=== PATIENT | male | born 1965 | race Caucasian/White ===

== ENCOUNTER 2018-03-14 21:19 | Emergency (ER) | payer OTHER, MEDICAID | END 2018-03-14 22:45 | disposition home or self-care (01) | LOC: M ED 22:45 | DX: S60.562A Insect bite (nonvenomous) of left hand, initial encounter (principal); T78.40XA Allergy, unspecified, initial encounter; R60.0 Localized edema; W57.XXXA Bitten or stung by nonvenomous insect and other nonvenomous arthropods, initial encounter; Y92.89 Other specified places as the place of occurrence of the external cause; I10 Essential (primary) hypertension; Z86.73 Personal history of transient ischemic attack (TIA), and cerebral infarction without residual deficits; Z86.19 Personal history of other infectious and parasitic diseases; Z79.899 Other long term (current) drug therapy; Z79.82 Long term (current) use of aspirin | CPT/HCPCS: 99283 ==

== ENCOUNTER 2020-09-07 08:45 | Emergency (ER) | payer OTHER ==
[~2020-09-07] VITALS: Ht 188 cm; Wt 134.7 kg
[~2020-09-07 08:45] MED LIST: ACET125T2 PO; AMLO25TA PO; ANTACHW5 PO; ASPI81TA24 PO; LABE20TAB GT; LIPI20TA PO; MECL1TAB31 PO; NAPR-885 PO; PLAV1TAB2 PO; TOPA1TAB PO; normodyne PO
[2020-09-07 09:42] LABS: BASO % 0.3 % (0.0-1.0); EOS % 0.2 % (0.0-3.0); HEMATOCRIT 46.3 % (42.0-52.0); HEMOGLOBIN 15.3 g/dl (13.5-17.5); LYMPH # 0.6 10^3/uL (1.5-5.0); LYMPH % 6.3 % (24.0-44.0); MEAN CORPUSCULAR HEMOGLOBIN 28.7 pg (27.0-33.0); MEAN CORPUSCULAR VOLUME 86.7 fl (80.0-96.0); MONO # 0.7 10^3/uL (0.0-0.8); MONO % 7.5 % (0.0-5.0); NEUTROPHILS # 7.8 10^3/uL (1.5-8.5); NEUTROPHILS % 85.4 % (36.0-66.0); PLATELET COUNT, AUTOMATED 156 10^3/uL (150-450); RED BLOOD COUNT 5.34 10^6/uL (4.30-6.10); WHITE BLOOD COUNT 9.2 10^3/uL (4.0-10.0)
[2020-09-07] MEDS ORDERED: NS 1,000 ML IV ONE (09:45)
[2020-09-07 09:58] LABS: ALT/SGPT 31 U/L (12-78); BILIRUBIN,DIRECT < 0.1 MG/DL (0.0-0.2); BILIRUBIN,TOTAL 0.4 MG/DL (0.2-1.0); LIPASE 130 U/L (73-393); TOTAL PROTEIN 7.4 GM/DL (6.4-8.2)
--- NOTE | 2020-09-07 10:05 | REP ---
INDICATION: l flank pain, hematuria, fmhx of stones COMPARISON: None. TECHNIQUE: Helical scanning is acquired in 4 mm axial images were reformatted. Coronal and sagittal MPR images were generated and reviewed. FINDINGS: Preliminary digital saddle and side wire stitcher radiograph shows minimal gaseous distention of the transverse colon, otherwise negative bowel gas pattern. The lung bases are clear on axial CT images. Vascular calcifications noted in the distribution of the left coronary artery. There are multiple small hepatic cysts. The largest of these is in the left lobe measuring 1.6 cm in diameter. No focal liver mass lesion is seen. A tiny accessory splenule is present. Spleen is otherwise unremarkable. Normal adrenal glands are seen. No abnormality is noted in the pancreas or in the gallbladder. There is no evidence of hydronephrosis or intrarenal calculus on the right kidney. The left kidney is somewhat edematous and enlarged compared to its right-sided counterpart. There is mild to moderate left-sided hydronephrosis. There is perinephric fat streaking consistent with edema. There is a 2-3 mm intrarenal calculus at mid pole level in the left kidney. The hydronephrosis and hydroureter are seen with moderate pattern of periureteral edema along the pelvic sidewall. The left distal ureter is seen to contain a obstructive 4 mm calculus at the level of the ureterovesical junction. No bladder calculus is seen. No right ureteral calculus is observed. There are some dystrophic calcifications in the prostate. Seminal vesicles are unremarkable. There is a metallic density in the right mid abdomen question previous surgery. The patient does not report previous surgery on the survey question ear. Small and large bowel loops are otherwise unremarkable. Appendix is not visualized. I suspect previous appendectomy. IMPRESSION: Acute obstructive uropathy on the left due to a 4 mm obstructive distal ureteral calculus at the ureterovesical junction. There is enlargement of the left kidney moderate hydronephrosis and perinephric and periureteral edema noted. There is evidence of surgical clips in the right mid abdomen question previous surgery. <Electronically signed by Arnold Benoit > 09/07/20 1002
[2020-09-07] MEDS ORDERED: NORC1TAB7 PO (11:08)
[2020-09-07] MEDS ORDERED: FLOM0.4C39 PO (11:08)
[2020-09-07 11:18] VITALS: BP 177/95
[2020-09-07] MEDS ORDERED: KEFL500C17 PO (15:56)
== END 2020-09-07 11:25 | disposition home or self-care (01) ==
LOC: M ED 08:45
DX: N20.1 Calculus of ureter (principal); N17.9 Acute kidney failure, unspecified; I10 Essential (primary) hypertension; E78.5 Hyperlipidemia, unspecified; K21.9 Gastro-esophageal reflux disease without esophagitis; Z79.899 Other long term (current) drug therapy; Z79.82 Long term (current) use of aspirin; Z86.73 Personal history of transient ischemic attack (TIA), and cerebral infarction without residual deficits

== ENCOUNTER → 2023-12-05 | Outpatient (REF) | payer BC ==
[~2023-12-05] MED LIST changes: +CLOP75TA99 PO; +FLOM0.4C39 PO; +KEFL500C17 PO; +MECL-209 PO; -MECL1TAB31 PO; +NORC1TAB7 PO; -PLAV1TAB2 PO
[2023-12-05 14:53] LABS: FOLLICLE STIMULATING HORMONE 9.8 mIU/ML (1.4-18.1)
[2023-12-05 14:54] LABS: ESTRADIOL 35.6 PG/ML (<39.8); LUTEINIZING HORMONE 4.3 mIU/ML (1.5-9.3)
[2023-12-06 12:08] LABS: TESTOSTERONE FREE (DIRECT) 9.8 pg/mL (7.2-24.0)
== END ==
LOC: M LAB REF 12:59
PROVIDERS: ATTEND Internal Medicine
DX: R79.89 Other specified abnormal findings of blood chemistry (principal)

== ENCOUNTER → 2024-03-18 | Outpatient (CLI) | payer OTHER ==
[2024-03-18 09:30] LABS: HEMATOCRIT 37.6 % (42.0-52.0); HEMOGLOBIN 12.3 g/dl (13.5-17.5); MEAN CORPUSCULAR HEMOGLOBIN 28.9 pg (27.0-33.0); MEAN CORPUSCULAR HGB CONC 32.7 g/dl (32.0-36.5); MEAN CORPUSCULAR VOLUME 88.5 fl (80.0-96.0); PLATELET COUNT, AUTOMATED 272 10^3/uL (150-450); RED BLOOD COUNT 4.25 10^6/uL (4.30-6.10)
== END ==
LOC: M LAB 08:28
PROVIDERS: ATTEND Nurse Practitioner Family
DX: R79.89 Other specified abnormal findings of blood chemistry (principal)

== ENCOUNTER → 2024-04-08 | Outpatient (REF) | payer OTHER | LOC: M LAB REF 12:06 | PROVIDERS: ATTEND Internal Medicine | DX: E29.1 Testicular hypofunction (principal); R79.89 Other specified abnormal findings of blood chemistry ==

== ENCOUNTER → 2024-06-15 | Outpatient (REF) | payer OTHER ==
[2024-06-15 14:07] LABS: HEMATOCRIT 48.2 % (42.0-52.0); HEMOGLOBIN 15.8 g/dl (13.5-17.5); MEAN CORPUSCULAR HEMOGLOBIN 28.4 pg (27.0-33.0); MEAN CORPUSCULAR HGB CONC 32.8 g/dl (32.0-36.5); MEAN CORPUSCULAR VOLUME 86.5 fl (80.0-96.0); PLATELET COUNT, AUTOMATED 163 10^3/uL (150-450); RED BLOOD COUNT 5.57 10^6/uL (4.30-6.10); WHITE BLOOD COUNT 5.1 10^3/uL (4.0-10.0)
== END ==
LOC: M LABDRWAD 12:47
PROVIDERS: ATTEND Physician Assistant
DX: R29.1 Meningismus (principal)

== ENCOUNTER → 2024-09-21 | Outpatient (REF) | payer OTHER | LOC: M LABSMT 08:05 | PROVIDERS: ATTEND Physician Assistant | DX: E29.1 Testicular hypofunction (principal) ==

== ENCOUNTER → 2024-10-09 | Outpatient (REF) | payer OTHER ==
[2024-10-09 14:43] LABS: HEMATOCRIT 49.5 % (42.0-52.0); HEMOGLOBIN 16.3 g/dl (13.5-17.5); MEAN CORPUSCULAR HEMOGLOBIN 28.5 pg (27.0-33.0); MEAN CORPUSCULAR HGB CONC 32.9 g/dl (32.0-36.5); MEAN CORPUSCULAR VOLUME 86.7 fl (80.0-96.0); PLATELET COUNT, AUTOMATED 181 10^3/uL (150-450); RED BLOOD COUNT 5.71 10^6/uL (4.30-6.10); WHITE BLOOD COUNT 7.5 10^3/uL (4.0-10.0)
[2024-10-09 15:08] LABS: ALBUMIN 3.8 G/DL (3.2-5.2); ALKALINE PHOSPHATASE 58 U/L (40-129); ALT/SGPT 16 U/L (7.0-40); AST/SGOT 20 U/L (<34); BILIRUBIN,TOTAL 0.4 MG/DL (0.3-1.2); BLOOD UREA NITROGEN 15 MG/DL (9-23); CALCIUM LEVEL 9.6 MG/DL (8.5-10.1); CARBON DIOXIDE LEVEL 31 MMOL/L (20-31); CHLORIDE LEVEL 103 MMOL/L (98-107); CHOLESTEROL LEVEL 292 MG/DL (<200); CHOLESTEROL RISK RATIO 7.52 (<5); CREATININE FOR GFR 1.02 MG/DL (0.70-1.30); GLOMERULAR FILTRATION RATE > 60.0 (>56); GLUCOSE, FASTING 76 MG/DL (60-100); HDL CHOLESTEROL 38.8 MG/DL (>40); LDL CHOLESTEROL 210.4 MG/DL (<100); MAGNESIUM LEVEL 2.2 MG/DL (1.8-2.4); NON-HDL-C 253.2 MG/DL; POTASSIUM SERUM 4.2 MMOL/L (3.5-5.1); SODIUM LEVEL 143 MMOL/L (136-145); TOTAL PROTEIN 7.4 G/DL (5.7-8.2); TRIGLYCERIDES LEVEL 214 MG/DL (<150)
== END ==
LOC: M LABDRWAD 13:01
PROVIDERS: ATTEND Internal Medicine
DX: I10 Essential (primary) hypertension (principal); E78.5 Hyperlipidemia, unspecified; Z86.73 Personal history of transient ischemic attack (TIA), and cerebral infarction without residual deficits

== ENCOUNTER → 2025-02-03 | Outpatient (CLI) | payer OTHER ==
[~2025-02-03] MED LIST changes: -FLOM0.4C39 PO; +TAMS-18 PO
== END ==
LOC: M PLAIMG 09:47
PROVIDERS: ATTEND Orthopaedic Surgery
DX: M25.512 Pain in left shoulder (principal); M19.012 Primary osteoarthritis, left shoulder; M25.412 Effusion, left shoulder; M75.52 Bursitis of left shoulder

== ENCOUNTER 2025-04-14 03:01 | Emergency (ER) | payer OTHER ==
[~2025-04-14] VITALS: Ht 188 cm; Wt 125.0 kg
[2025-04-14 03:04] VITALS: TEMP 98.3
[2025-04-14 04:17] LABS: KETONE, URINE AUTO RFX NEGATIVE (NEGATIVE); LEUKOCYTE ESTERASE UR AUTO RFX NEGATIVE (NEGATIVE); MUCUS, URINE RFX SMALL (NEGATIVE); NITRITE, URINE AUTO RFX NEGATIVE (NEGATIVE); RBC, URINE AUTO RFX 37 /HPF (0-3); SQUAM EPITHELIAL CELL UR AURFX 0 /HPF (0-6); WBC, URINE AUTO RFX 0 /HPF (0-3)
[2025-04-14] MEDS ORDERED: TAMS-18 PO (05:07)
[2025-04-14] MEDS ORDERED: KETO-204 PO (05:07)
[2025-04-14] MEDS: TAMSULOSIN 0.4 MG CAP PO ONE ×2 (05:22→05:28)
[2025-04-14] MEDS: KETOROLAC TROMETHAMINE 10 MG TAB PO ONE (05:22)
[2025-04-14 05:27] VITALS: BP 167/95; O2SAT 97
[2025-04-14] MEDS: NS (Normal Saline) 0.9% 1,000 ML IV ONE (05:28)
[2025-04-14] MEDS: ONDANSETRON 4MG 2ML VIAL IV ONE (05:28)
[2025-04-14] MEDS: KETOROLAC 30 MG/ML 1 ML VIAL IV ONE (05:28)
== END 2025-04-14 05:29 | disposition home or self-care (01) ==
LOC: M ED 03:01
DX: N20.0 Calculus of kidney (principal); I10 Essential (primary) hypertension; E78.5 Hyperlipidemia, unspecified; Z86.73 Personal history of transient ischemic attack (TIA), and cerebral infarction without residual deficits; Z88.2 Allergy status to sulfonamides; Z79.1 Long term (current) use of non-steroidal anti-inflammatories (NSAID); Z79.2 Long term (current) use of antibiotics; Z79.899 Other long term (current) drug therapy

== ENCOUNTER → 2025-05-04 | Outpatient (REF) | payer OTHER ==
[~2025-05-04] MED LIST changes: +KETO-204 PO
== END ==
LOC: M LAB REF 16:36
PROVIDERS: ATTEND Surgery
DX: L02.219 Cutaneous abscess of trunk, unspecified (principal)

== ENCOUNTER → 2025-05-21 | Outpatient (CLI) | payer OTHER | LOC: M RAD 07:49 | PROVIDERS: ATTEND Internal Medicine | DX: K76.89 Other specified diseases of liver (principal) ==

== ENCOUNTER → 2025-05-25 | Outpatient (CLI) | payer OTHER ==
[2025-05-25 18:18] LABS: PLATELET COUNT, AUTOMATED 185 10^3/uL (150-450)
[2025-05-25 18:21] LABS: CALCIUM LEVEL 9.5 MG/DL (8.3-10.6); CARBON DIOXIDE LEVEL 33.0 MMOL/L (20-31); CHLORIDE LEVEL 102.0 MMOL/L (98-107); CREATININE FOR GFR 1.18 MG/DL (0.70-1.30); GLOMERULAR FILTRATION RATE 70.6 (>49); POTASSIUM SERUM 3.8 MMOL/L (3.5-5.1); SODIUM LEVEL 144.0 MMOL/L (136-145)
== END ==
LOC: M ADAMS 14:15
PROVIDERS: ATTEND Physician Assistant
DX: Z01.818 Encounter for other preprocedural examination (principal)

== ENCOUNTER → 2025-05-25 | Outpatient (REF) | payer OTHER | LOC: M LABSMT 14:12 | PROVIDERS: ATTEND Physician Assistant | DX: Z01.818 Encounter for other preprocedural examination (principal) ==

== ENCOUNTER 2025-06-08 23:36 | Emergency (ER) | payer OTHER ==
[~2025-06-08] VITALS: Ht 188 cm; Wt 120.5 kg
[~2025-06-08 23:36] MED LIST changes: -PROHANCE 279.3MG/ML 15ML VIAL As Ordered ONE; -PROHANCE 279.3MG/ML 5ML VIAL As Ordered ONE
[2025-06-09 00:30] VITALS: BP 155/85; TEMP 98.3; O2SAT 95
== END 2025-06-09 01:22 | disposition home or self-care (01) ==
LOC: M ED 23:36
DX: I65.02 Occlusion and stenosis of left vertebral artery (principal); I10 Essential (primary) hypertension; E78.5 Hyperlipidemia, unspecified; N40.0 Benign prostatic hyperplasia without lower urinary tract symptoms; Z88.2 Allergy status to sulfonamides; Z79.1 Long term (current) use of non-steroidal anti-inflammatories (NSAID); Z79.2 Long term (current) use of antibiotics; Z79.899 Other long term (current) drug therapy

== ENCOUNTER → 2025-06-08 | Outpatient (CLI) | payer OTHER ==
[~2025-06-08] MED LIST changes: +PROHANCE 279.3MG/ML 15ML VIAL As Ordered ONE; +PROHANCE 279.3MG/ML 5ML VIAL As Ordered ONE
== END ==
LOC: M RAD 16:48
PROVIDERS: ATTEND Internal Medicine
DX: I63.9 Cerebral infarction, unspecified (principal); I65.23 Occlusion and stenosis of bilateral carotid arteries
CPT/HCPCS: 70544; 70549; 70553; A9576

== ENCOUNTER → 2025-07-13 | Outpatient (REF) | payer OTHER ==
[~2025-07-13] MED LIST changes: +AMLO-751 PO; +CLOP75TA2 PO; +HYDR12.55 PO; -LABE20TAB GT; +LABE20TAB PO; +TAMS1CAP17 PO; +TEST1INJ3 SQ
[2025-07-13 15:06] LABS: ALT/SGPT 21.0 U/L (7.0-40); AST/SGOT 30.0 U/L (<34); CALCIUM LEVEL 9.1 MG/DL (8.3-10.6); CARBON DIOXIDE LEVEL 32.0 MMOL/L (20-31); CHLORIDE LEVEL 99.0 MMOL/L (98-107); CREATININE FOR GFR 1.02 MG/DL (0.70-1.30); GLOMERULAR FILTRATION RATE 84.1 (>49); POTASSIUM SERUM 3.5 MMOL/L (3.5-5.1); SODIUM LEVEL 140.0 MMOL/L (136-145)
== END ==
LOC: M LABDRWAD 13:34
PROVIDERS: ATTEND Specialist
DX: E87.6 Hypokalemia (principal)

== ENCOUNTER → 2025-07-19 | Outpatient (REF) | payer OTHER ==
[2025-07-19 18:26] LABS: AMORPHOUS SEDIMENT LARGE (NEGATIVE); APPEARANCE, URINE TURBID (CLEAR); BACTERIA, URINE AUTO NEGATIVE (NEGATIVE); BILIRUBIN, URINE AUTO NEGATIVE (NEGATIVE); BLOOD, URINE BLOOD NEGATIVE (NEGATIVE); GLUCOSE, URINE (UA) AUTO NEGATIVE (NEGATIVE); KETONE, URINE AUTO TRACE mg/dL (NEGATIVE); LEUKOCYTE ESTERASE, URINE AUTO NEGATIVE (NEGATIVE); MUCUS, URINE MODERATE (NEGATIVE); NITRITE, URINE AUTO NEGATIVE (NEGATIVE); PROTEIN, URINE AUTO 1+ mg/dL (NEGATIVE); RBC, URINE AUTO 1 /HPF (0-3); SPECIFIC GRAVITY URINE AUTO 1.027 (1.002-1.035); SQUAMOUS EPITHELIAL CELL UR AU 0 /HPF (0-6); UROBILINOGEN, URINE AUTO 0.2 mg/dL (0.0-2.0); WBC, URINE AUTO 2 /HPF (0-3)
== END ==
LOC: M LAB REF 17:01
PROVIDERS: ATTEND Internal Medicine
DX: Z01.818 Encounter for other preprocedural examination (principal)

== ENCOUNTER 2025-07-22 07:01 | Day surgery (SDC) | payer OTHER ==
[~2025-07-22] VITALS: Ht 188 cm; Wt 113.9 kg
[2025-07-22] MEDS ORDERED: MIDAZOLAM INJ 2 MG/2 ML VIAL As Ordered ONE (07:45)
[2025-07-22] MEDS ORDERED: ACETAMINOPHEN 1000MG/100ML IV BAG As Ordered ONE (07:46)
[2025-07-22] MEDS ORDERED: ONDANSETRON 4MG/2ML VIAL As Ordered ONE (07:46)
[2025-07-22] MEDS ORDERED: LIDOCAINE 2% 100 MG/5 ML SDV (FOR ANES.) As Ordered ONE (07:46)
[2025-07-22] MEDS ORDERED: dexAMETHasone 4 MG/ML 1 ML VIAL As Ordered ONE (07:46)
[2025-07-22] MEDS ORDERED: LR 1,000 ML IV SCH (08:15)
[2025-07-22] MEDS: ceFAZolin SOD 2 GM IV ONCE IV ONE (08:37)
[2025-07-22 09:33] VITALS: BP 117/76; TEMP 97.3; O2SAT 95
== END 2025-07-22 09:40 | disposition home or self-care (01) ==
LOC: M SDC 07:01
PROVIDERS: ATTEND Urology
DX: N20.0 Calculus of kidney (principal); I10 Essential (primary) hypertension; Z86.73 Personal history of transient ischemic attack (TIA), and cerebral infarction without residual deficits; Z79.899 Other long term (current) drug therapy; Z79.82 Long term (current) use of aspirin; Z88.2 Allergy status to sulfonamides
CPT/HCPCS: 50590; 74018; J0131; J0688; J1100; J2250; J2405; J3010

== ENCOUNTER → 2025-08-13 | Outpatient (CLI) | payer OTHER | LOC: M ADAMS 09:39 | PROVIDERS: ATTEND Urology | DX: N20.0 Calculus of kidney (principal) ==